=== PATIENT | male | born 1985 | race Hispanic/Latino ===

== ENCOUNTER 2022-10-29 12:58 | Observation (INO) | payer SELFPAY ==
[2022-10-29 13:45] LABS: BASO% 0.1 % (0-3); IMMATURE GRANULOCYTES 0.3 % (0.0-5.0); LYMPH% 6.1 % (15-41); MEAN CELL VOLUME 83.8 fL CALC (80.0-100.0); MEAN CORPUSCULAR HGB 28.6 pG CALC (26.0-32.0); MEAN CORPUSCULAR HGB CONC 34.1 g/dL CAL (32.0-36.0); MONO% 4.6 % (2-13); NEUT# 21.25 thou/uL (1.82-7.42); NEUT% 88.9 % (42-76); RED BLOOD COUNT 5.25 mill/uL (4.70-6.10); RED CELL DISTRI WIDTH 13.2 % (11.5-15.5)
[2022-10-29 13:57] LABS: ALBUMIN 5.2 g/dL (3.2-5.0); ALKALINE PHOSPHATASE 111 u/l (38-126); AMYLASE 55 u/l (30-110); ANION GAP 18 (6-22 (CALC)); BILIRUBIN, TOTAL 1.3 mg/dL (0.2-1.3); BUN 15 mg/dL (9-20); BUN/CREATININE RATIO 19 (12-20 (CALC)); CARBON DIOXIDE 25 mmol/l (22-30); CHLORIDE 99 mmol/l (95-108); CREATININE 0.8 mg/dL (0.7-1.3); GFR FOR AFR.AMER. > 60 ML/MIN (>=60 (CALC)); GFR OTHER RACES > 60 ML/MIN (>=60 (CALC)); POTASSIUM 3.8 mmol/l (3.5-5.1); SGOT/AST 55 u/l (17-59); SODIUM 138 mmol/l (137-146)
[2022-10-29 16:09] LABS: URINE BILIRUBIN - DIPSTICK NEGATIVE (NEGATIVE); URINE BLOOD DIPSTICK NEGATIVE (NEGATIVE); URINE COLOR YELLOW; URINE GLUCOSE - DIPSTICK NEGATIVE (NEGATIVE); URINE KETONE NEGATIVE (NEGATIVE); URINE LEUK ESTERASE NEGATIVE (NEGATIVE); URINE PH 5.5 (4.5-8.0); URINE PROTEIN - DIPSTICK NEGATIVE (NEG-TRACE); URINE SPECIFIC GRAVITY 1.015; URINE UROBILINOGEN - DIPSTICK 0.2 E.U./dL (0.2)
[2022-10-29 16:11] LABS: URINE NITRITE - DIPSTICK NEGATIVE (Negative)
[2022-10-29 19:03] VITALS: BP 93/65
[2022-10-29 19:39] VITALS: BP 93/55
[2022-10-29 20:02] VITALS: BP 102/63
[2022-10-29 21:41] VITALS: BP 98/60
[2022-10-30 01:37] VITALS: BP 96/61
[2022-10-30 03:12] VITALS: BP 102/59; BP 96/58
[2022-10-30 06:11] VITALS: BP 105/65
[2022-10-30 08:35] VITALS: BP 102/55
[2022-10-30] MEDS ORDERED: PERCOCET 5/325M1 TAB PO (13:44)
== END 2022-10-30 15:30 | disposition home or self-care (01) | DRG 343 ==
LOC: ED 12:58 → ORM 16:46 → MS2 19:49
PROVIDERS: Nurse Practitioner; ADMIT Surgery; ATTEND Surgery
PROC: 0DTJ4ZZ Resection of Appendix, Percutaneous Endoscopic Approach (ICD-10-PCS; principal; 2022-10-29)
DX: K35.80 Unspecified acute appendicitis (principal); L50.0 Allergic urticaria; R23.2 Flushing; T36.0X5A Adverse effect of penicillins, initial encounter; Y92.238 Other place in hospital as the place of occurrence of the external cause; Z20.822 Contact with and (suspected) exposure to COVID-19
CPT/HCPCS: C9290; J0131; J1100